=== PATIENT | female | born 1980 | race Caucasian/White ===

== ENCOUNTER → 2016-12-27 | Outpatient (CLI) | payer OTHER | END | disposition home or self-care (01) | LOC: CFH 07:18 | PROVIDERS: ATTEND Nurse Practitioner Family | DX: R10.13 Epigastric pain (principal); R10.11 Right upper quadrant pain | CPT/HCPCS: 74245 ==

== ENCOUNTER 2021-06-03 11:52 | Outpatient (CLI) | payer OTHER ==
[~2021-06-03 11:52] MED LIST: BLAC20TA PO; CHOL2000 PO; L-NO1TBD14 PO; LEVO25TA4 PO; LEVO50TA5 PO; LEVO5TAB29 PO; SUPER B COMPLEX PO; TIZA4TAB2 PO; TRAM50TA2 PO; VITA200C33 PO; [UNRECOGNIZED DRUG - OTHER] PO; [UNRECOGNIZED DRUG - OTHER] PO; [UNRECOGNIZED DRUG - OTHER] PO; [UNRECOGNIZED DRUG - OTHER] PO
== END 2021-06-03 23:59 | disposition home or self-care (01) ==
LOC: CARD 11:52
PROVIDERS: ATTEND Internal Medicine Cardiovascular Disease
DX: I10 Essential (primary) hypertension (principal); I47.1 Supraventricular tachycardia; I49.3 Ventricular premature depolarization
CPT/HCPCS: 93017